=== PATIENT | female | born 1985 | race Two or more races ===

== ENCOUNTER → 2018-07-02 | Emergency (ER) | payer OTHER ==
[~2018-07-02] VITALS: Ht 147.3 cm; Wt 58.5 kg
[~2018-07-02] MED LIST: ALBUTEROL2.5 MG/3 M IH; Atrovent 0.02% (0.5 MG/2.5 ML AMPUL) IH; BENADRYL25 MG PO; CLARITIN PO; EFFEXOR XR150 MG; Flonase 50MCG NS; LEVAQUIN750 MG PO; MEDROL4 MG PO; ORPH100T PO; PERCOCET 5/3251 TAB PO; PROMETHAZINE W473 ML PO; PROVENTIL HFA6.7 GM IH; Protonix PO; Proventil 0.083% 2.5MG/3ML AMPUL.NEB. IH; Singulair 10MG PO; TUSSI PRES-B L120 M1 PO; TUSSI-PRES LIQ118 ML PO; ZOFRAN8 MG PO; ZYRTEC10 M3 PO; ZYRTEC10 MG PO; [UNRECOGNIZED DRUG - OTHER] PO
== END | disposition home or self-care (01) ==
LOC: ER 20:56
DX: J09.X2 Influenza due to identified novel influenza A virus with other respiratory manifestations (principal)